=== PATIENT | female | born 2000 | race Caucasian/White ===

== ENCOUNTER 2018-07-09 19:03 | Emergency (ER) | payer BC ==
[~2018-07-09] VITALS: Ht 170.2 cm; Wt 72.1 kg
[2018-07-09 19:45] VITALS: Ht 170.2 cm; Wt 72.1 kg
[2018-07-09 21:40] VITALS: BP 139/71
== END 2018-07-09 21:40 | disposition home or self-care (01) ==
LOC: ED 19:03
DX: S60.021A Contusion of right index finger without damage to nail, initial encounter (principal); S60.031A Contusion of right middle finger without damage to nail, initial encounter; Z98.890 Other specified postprocedural states; W22.8XXA Striking against or struck by other objects, initial encounter; Y93.89 Activity, other specified; Y92.89 Other specified places as the place of occurrence of the external cause; Y99.8 Other external cause status
CPT/HCPCS: 90715; A4570